=== PATIENT | female | born 1965 | race Caucasian/White ===

== ENCOUNTER → 2018-10-28 | Outpatient (REF) | payer OTHER | LOC: M SFHCLERA 11:01 | PROVIDERS: ATTEND Nurse Practitioner Family | DX: J02.9 Acute pharyngitis, unspecified (principal) ==

== ENCOUNTER → 2019-02-04 | Outpatient (CLI) | payer OTHER ==
[~2019-02-04] MED LIST: D3 S20002 PO; MELO15TA28 PO; PRIL20TA2 PO
--- NOTE | 2019-02-04 10:56 | REP ---
MRCP: MRCP is accomplished utilizing multiple heavily T2-weighted sequences in the axial and coronal planes, with MIP reconstruction images. The gallbladder is mildly distended and contains a 2.5 mm calculus. There is no gallbladder wall edema or pericholecystic fluid. There is not significant intrahepatic biliary dilatation. The common bile duct is mildly dilated up to 9 mm. There is no evidence of choledocholithiasis. There is no definite mass in the head of the pancreas. The pancreatic duct is normal in caliber. The visualized liver, spleen, adrenals, pancreas and kidneys are unremarkable. I see no evidence of adenopathy or free fluid in the visualized abdomen. There is a moderate hiatal hernia. IMPRESSION: Gallstone in the gallbladder measures 2.5 cm in diameter without gallbladder wall edema. There is mild dilatation of the common bile duct at 9 mm maximally. No evidence of choledocholithiasis and no definite pancreatic head mass. However, more complete evaluation of the pancreatic parenchyma is recommended with either MRI or CT with IV contrast. Electronically Signed by Korey Mantilla MD 02/06/2019 07:43 A
== END ==
LOC: M RAD 08:59
PROVIDERS: ATTEND Surgery
DX: K80.20 Calculus of gallbladder without cholecystitis without obstruction (principal)

== ENCOUNTER → 2019-02-14 | Outpatient (CLI) | payer OTHER ==
--- NOTE | 2019-02-16 15:57 | ECGEPIP ---
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 ARTIFACT NOTED ON THE BASELINE Electronically Signed on 02-16-2019 15:57:14 EDT by Bam Gupta
== END ==
LOC: M EKG 12:51
PROVIDERS: ATTEND Surgery
DX: Z01.818 Encounter for other preprocedural examination (principal); K21.9 Gastro-esophageal reflux disease without esophagitis; L93.0 Discoid lupus erythematosus

== ENCOUNTER 2019-02-19 09:59 | Day surgery (SDC) | payer OTHER ==
[~2019-02-19] VITALS: Ht 154.9 cm; Wt 97.1 kg
[~2019-02-19 09:59] MED LIST changes: +LIDOCAINE 2% INJ 100 MG/5 ML SDV (FOR ANES.) As Ordered ONE; +LR 1,000 ML IV ONE; +ONDANSETRON 4MG/2ML VIAL (J2405) As Ordered ONE; +PROPOFOL 200 MG/20 ML VIAL As Ordered ONE; +ROCURONIUM BROMIDE 50 MG/5 ML VIAL As Ordered ONE; +dexameTHASONE 4 MG/ML 1ML VIAL (J1100) As Ordered ONE
[2019-02-19] MEDS ORDERED: MIDAZOLAM INJ 2 MG/2 ML VIAL (J2250) As Ordered ONE (10:02)
[2019-02-19] MEDS ORDERED: fentaNYL 250 MCG/5 ML INJECTION (J3010) As Ordered ONE (10:02)
[2019-02-19] MEDS ORDERED: GLUCAGON FOR INJ 1 MG VIAL (J1610) As Ordered ONE (10:03)
[2019-02-19] MEDS ORDERED: BUPIVACAINE/EPIN 0.25% 30 ML VIAL As Ordered ONE (10:03)
[2019-02-19] MEDS: ceFAZolin SOD 1 GM in D5W MINI-BAG PLUS 50 ML IV SCH (10:52)
[2019-02-19] MEDS ORDERED: ACETAMINOPHEN 1000MG 100ML IV BTL (OFIRMEV) (J0131 PER 10MG) As Ordered ONE (10:56)
[2019-02-19] MEDS ORDERED: KETOROLAC 60 MG/2 ML VIAL (J1885) As Ordered ONE (11:27)
[2019-02-19] MEDS ORDERED: SUGAMMADEX SODIUM 500 MG/5 ML VIAL (BRIDION) As Ordered ONE (11:27)
--- NOTE | 2019-02-19 12:14 | RO ---
DATE OF PROCEDURE: 02/19/2019 PREOPERATIVE DIAGNOSIS: Symptomatic gallstones. POSTOPERATIVE DIAGNOSIS: Symptomatic gallstones. PROCEDURE: Laparoscopic cholecystectomy. SURGEON: Dr. 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 ESTIMATED BLOOD LOSS: Minimal. FLUIDS: Crystalloid. DESCRIPTION OF PROCEDURE: The patient was brought to the operating room and was given general anesthesia. After adequate anesthesia and preoperative antibiotics were given, the patient was prepped and draped in the usual sterile fashion. Next, a supraumbilical incision was made with skin knife. Blunt dissection was carried down to fascia. Fascia was entered with a Veress needle, insufflated to 15 mm of pressure and a 10 mm trocar was placed. Under direct visualization, an epigastric and two lateral trocars were placed, and the gallbladder was grasped, retracted superiorly. Numerous adhesions of the gallbladder to the duodenum were taken down with hook cautery. The peritoneum overlying the neck of the gallbladder was taken down with hook cautery as well. The patient had an anteriorly placed cystic artery with the cystic duct node along this. It was on the gallbladder itself. It was transected and then the neck of the gallbladder was further mobilized quite nicely so that the dissection went all the way up to the cystic plate and the neck of gallbladder seemed to taper nicely into the cystic duct itself. Cystic duct was clipped proximally and distally and transected, and the gallbladder was removed from the gallbladder bed, placed in an EndoCatch bag and brought out through the umbilicus. 0 Vicryl was used to close the fascia at the umbilicus and all incisions were closed with 4-0 Vicryl. Dermabond was placed over the incisions, as well as gauze and OpSite. The patient was awakened, extubated, and brought to recovery room awake, alert, hemodynamically stable. Sponge and needle counts correct times two.
[2019-02-19] MEDS ORDERED: HYDROMORPHONE HCL 0.5 MG/ 0.5 ML SYRINGE (J1170 PER 1) IV PRN (12:30)
[2019-02-19] MEDS ORDERED: NORCO, ANEXSIA 5/325MG TABLET (HYDROcodone/ACETAMINOPHEN) PO PRN (12:30)
[2019-02-19] MEDS ORDERED: fentaNYL 100 MCG/2 ML INJECTION (J3010) IV PRN (12:30)
[2019-02-19] MEDS ORDERED: LR 1,000 ML IV SCH (12:30)
[2019-02-19] MEDS ORDERED: ONDANSETRON 4MG/2ML VIAL (J2405) IV PRN (12:30)
[2019-02-19] MEDS ORDERED: PERCOCET 5MG/325MG TAB PO PRN (12:30)
[2019-02-19] MEDS ORDERED: PERCOCET 5MG/325MG TAB As Ordered ONE (12:31)
[2019-02-19 14:40] VITALS: BP 137/77
[2019-02-19] MEDS ORDERED: KETOROLAC 30 MG/ML VIAL (J1885) IV SCH (18:00)
== END 2019-02-19 14:50 | disposition home or self-care (01) ==
LOC: M SDC 09:59
PROVIDERS: ATTEND Surgery
DX: K80.10 Calculus of gallbladder with chronic cholecystitis without obstruction (principal); K21.9 Gastro-esophageal reflux disease without esophagitis; M32.9 Systemic lupus erythematosus, unspecified; Z79.899 Other long term (current) drug therapy; Z88.8 Allergy status to other drugs, medicaments and biological substances; Z88.1 Allergy status to other antibiotic agents
CPT/HCPCS: 47562; 88304; J0131; J0690; J1100; J1885; J2250; J2405; J3010

== ENCOUNTER → 2022-08-30 | Outpatient (CLI) | payer OTHER ==
[~2022-08-30] MED LIST changes: -LIDOCAINE 2% INJ 100 MG/5 ML SDV (FOR ANES.) As Ordered ONE; -LR 1,000 ML IV ONE; -ONDANSETRON 4MG/2ML VIAL (J2405) As Ordered ONE; -PROPOFOL 200 MG/20 ML VIAL As Ordered ONE; -ROCURONIUM BROMIDE 50 MG/5 ML VIAL As Ordered ONE; -dexameTHASONE 4 MG/ML 1ML VIAL (J1100) As Ordered ONE
[2022-08-30 19:46] LABS: CHOLESTEROL RISK RATIO 2.8 (<5); HDL CHOLESTEROL 85.7 MG/DL (>40); LDL CHOLESTEROL 136.5 MG/DL (<100)
== END ==
LOC: M WUC 16:02
PROVIDERS: ATTEND Physician Assistant
DX: E78.2 Mixed hyperlipidemia (principal)

== ENCOUNTER → 2022-08-30 | Outpatient (CLI) | payer OTHER ==
[2022-08-30 19:20] LABS: APPEARANCE, URINE CLEAR (CLEAR); BACTERIA, URINE AUTO NEGATIVE (NEGATIVE); BILIRUBIN, URINE AUTO NEGATIVE (NEGATIVE); BLOOD, URINE BLOOD NEGATIVE (NEGATIVE); COLOR, URINE YELLOW (YELLOW); GLUCOSE, URINE (UA) AUTO NEGATIVE (NEGATIVE); HEMATOCRIT 40.7 % (36.0-47.0); HEMOGLOBIN 13.3 g/dl (12.0-15.5); KETONE, URINE AUTO TRACE mg/dL (NEGATIVE); LEUKOCYTE ESTERASE, URINE AUTO NEGATIVE (NEGATIVE); MEAN CORPUSCULAR HEMOGLOBIN 29.1 pg (27.0-33.0); MEAN CORPUSCULAR HGB CONC 32.7 g/dl (32.0-36.5); MEAN CORPUSCULAR VOLUME 89.1 fl (80.0-96.0); MUCUS, URINE SMALL (NEGATIVE); NITRITE, URINE AUTO NEGATIVE (NEGATIVE); PLATELET COUNT, AUTOMATED 277 10^3/uL (150-450); PROTEIN, URINE AUTO NEGATIVE (NEGATIVE); RBC, URINE AUTO 1 /HPF (0-3); RED BLOOD COUNT 4.57 10^6/uL (4.00-5.40); SPECIFIC GRAVITY URINE AUTO 1.026 (1.002-1.035); SQUAMOUS EPITHELIAL CELL UR AU 1 /HPF (0-6); UROBILINOGEN, URINE AUTO 0.2 mg/dL (0.0-2.0); WBC, URINE AUTO 3 /HPF (0-3); WHITE BLOOD COUNT 8.4 10^3/uL (4.0-10.0)
[2022-08-30 19:44] LABS: CREATININE,RANDOM URINE 109.7 MG/DL
[2022-08-30 19:45] LABS: ALBUMIN 3.8 G/DL (3.2-5.2); ALKALINE PHOSPHATASE 44 U/L (46-116); ALT/SGPT 24 U/L (7.0-40); AST/SGOT 23 U/L (<34); BILIRUBIN,TOTAL 0.5 MG/DL (0.3-1.2); BLOOD UREA NITROGEN 16 MG/DL (9-23); CALCIUM LEVEL 8.7 MG/DL (8.5-10.1); CARBON DIOXIDE LEVEL 32 MMOL/L (20-31); CHLORIDE LEVEL 101 MMOL/L (98-107); CREATININE FOR GFR 0.71 MG/DL (0.55-1.30); GLOMERULAR FILTRATION RATE > 60.0 (>51); GLUCOSE, FASTING 78 MG/DL (60-100); POTASSIUM SERUM 3.8 MMOL/L (3.5-5.1); SODIUM LEVEL 135 MMOL/L (136-145); TOTAL PROTEIN 6.7 G/DL (5.7-8.2)
== END ==
LOC: M WUC 16:06
PROVIDERS: ATTEND Internal Medicine Rheumatology
DX: M32.9 Systemic lupus erythematosus, unspecified (principal)

== ENCOUNTER → 2022-11-18 | Outpatient (CLI) | payer OTHER | LOC: M WUC 13:12 | PROVIDERS: ATTEND Internal Medicine Rheumatology | DX: Z79.899 Other long term (current) drug therapy (principal) ==

== ENCOUNTER → 2023-05-12 | Outpatient (CLI) | payer OTHER ==
[2023-05-12 15:37] LABS: HEMATOCRIT 45.9 % (36.0-47.0); HEMOGLOBIN 14.8 g/dl (12.0-15.5); MEAN CORPUSCULAR HEMOGLOBIN 28.7 pg (27.0-33.0); MEAN CORPUSCULAR HGB CONC 32.2 g/dl (32.0-36.5); PLATELET COUNT, AUTOMATED 295 10^3/uL (150-450); RED BLOOD COUNT 5.16 10^6/uL (4.00-5.40); WHITE BLOOD COUNT 8.3 10^3/uL (4.0-10.0)
[2023-05-12 16:02] LABS: ALBUMIN 3.8 G/DL (3.2-5.2); ALKALINE PHOSPHATASE 53 U/L (46-116); ALT/SGPT 16 U/L (7.0-40); AST/SGOT 12 U/L (<34); BILIRUBIN,TOTAL 0.6 MG/DL (0.3-1.2); BLOOD UREA NITROGEN 11 MG/DL (9-23); CALCIUM LEVEL 9.1 MG/DL (8.5-10.1); CARBON DIOXIDE LEVEL 27 MMOL/L (20-31); CHLORIDE LEVEL 102 MMOL/L (98-107); CHOLESTEROL LEVEL 271 MG/DL (<200); CHOLESTEROL RISK RATIO 2.59 (<5); CREATININE FOR GFR 0.71 MG/DL (0.55-1.30); GLOMERULAR FILTRATION RATE > 60.0 (>51); GLUCOSE, FASTING 87 MG/DL (60-100); HDL CHOLESTEROL 104.6 MG/DL (>40); LDL CHOLESTEROL 150.2 MG/DL (<100); NON-HDL-C 166.4 MG/DL; POTASSIUM SERUM 4.6 MMOL/L (3.5-5.1); SODIUM LEVEL 137 MMOL/L (136-145); TOTAL PROTEIN 7.1 G/DL (5.7-8.2); TRIGLYCERIDES LEVEL 81 MG/DL (<150)
== END ==
LOC: M WUC 10:56
PROVIDERS: ATTEND Physician Assistant
DX: E78.2 Mixed hyperlipidemia (principal)

== ENCOUNTER → 2023-09-21 | Outpatient (CLI) | payer OTHER ==
[2023-09-21 09:48] LABS: HEMOGLOBIN 13.6 g/dl (12.0-15.5); MEAN CORPUSCULAR HEMOGLOBIN 29.2 pg (27.0-33.0); MEAN CORPUSCULAR HGB CONC 33.2 g/dl (32.0-36.5); MEAN CORPUSCULAR VOLUME 88.2 fl (80.0-96.0); PLATELET COUNT, AUTOMATED 335 10^3/uL (150-450); RED BLOOD COUNT 4.65 10^6/uL (4.00-5.40)
[2023-09-21 10:22] LABS: TOTAL IRON BINDING CAPACITY 286 UG/DL (250-425)
[2023-09-21 10:24] LABS: THYROID STIMULATING HORMONE 1.851 uIU/ML (0.55-4.78)
[2023-09-21 10:25] LABS: ALBUMIN 3.7 G/DL (3.2-5.2); ALKALINE PHOSPHATASE 114 U/L (46-116); ALT/SGPT 29 U/L (7.0-40); AST/SGOT 13 U/L (<34); BILIRUBIN,TOTAL 0.5 MG/DL (0.3-1.2); BLOOD UREA NITROGEN 14 MG/DL (9-23); CALCIUM LEVEL 9.1 MG/DL (8.5-10.1); CARBON DIOXIDE LEVEL 29 MMOL/L (20-31); CHLORIDE LEVEL 102 MMOL/L (98-107); CHOLESTEROL LEVEL 195 MG/DL (<200); CHOLESTEROL RISK RATIO 2.79 (<5); CREATININE FOR GFR 0.62 MG/DL (0.55-1.30); GLOMERULAR FILTRATION RATE > 60.0 (>51); GLUCOSE, FASTING 77 MG/DL (60-100); HDL CHOLESTEROL 69.8 MG/DL (>40); IRON (FE) 64 UG/DL (50-170); LDL CHOLESTEROL 108.4 MG/DL (<100); NON-HDL-C 125.2 MG/DL; PERCENT SATURATION 22.4 % (13.2-45.0); POTASSIUM SERUM 4.6 MMOL/L (3.5-5.1); SODIUM LEVEL 136 MMOL/L (136-145); TOTAL PROTEIN 6.6 G/DL (5.7-8.2); TRIGLYCERIDES LEVEL 84 MG/DL (<150)
[2023-09-22 06:39] LABS: WHITE BLOOD COUNT 10.6 10^3/uL (4.0-10.0)
== END ==
LOC: M WUC 08:03
PROVIDERS: ATTEND Physician Assistant
DX: E78.2 Mixed hyperlipidemia (principal); R53.83 Other fatigue; E61.1 Iron deficiency

== ENCOUNTER → 2024-04-15 | Outpatient (CLI) | payer OTHER ==
[2024-04-15 12:57] LABS: HEMATOCRIT 42.4 % (36.0-47.0); HEMOGLOBIN 14.1 g/dl (12.0-15.5); MEAN CORPUSCULAR HEMOGLOBIN 29.6 pg (27.0-33.0); MEAN CORPUSCULAR HGB CONC 33.3 g/dl (32.0-36.5); MEAN CORPUSCULAR VOLUME 89.1 fl (80.0-96.0); PLATELET COUNT, AUTOMATED 342 10^3/uL (150-450); RED BLOOD COUNT 4.76 10^6/uL (4.00-5.40); WHITE BLOOD COUNT 8.2 10^3/uL (4.0-10.0)
[2024-04-15 13:32] LABS: ALBUMIN 3.7 G/DL (3.2-5.2); ALKALINE PHOSPHATASE 60 U/L (46-116); ALT/SGPT 15 U/L (7.0-40); AST/SGOT 11 U/L (<34); BILIRUBIN,TOTAL 0.6 MG/DL (0.3-1.2); BLOOD UREA NITROGEN 12 MG/DL (9-23); CALCIUM LEVEL 10.6 MG/DL (8.5-10.1); CARBON DIOXIDE LEVEL 29 MMOL/L (20-31); CHLORIDE LEVEL 102 MMOL/L (98-107); CHOLESTEROL LEVEL 228 MG/DL (<200); CHOLESTEROL RISK RATIO 3.59 (<5); GLOMERULAR FILTRATION RATE > 60.0 (>51); GLUCOSE, FASTING 74 MG/DL (60-100); HDL CHOLESTEROL 63.5 MG/DL (>40); LDL CHOLESTEROL 149.1 MG/DL (<100); NON-HDL-C 164.5 MG/DL; POTASSIUM SERUM 4.1 MMOL/L (3.5-5.1); SODIUM LEVEL 137 MMOL/L (136-145); TOTAL PROTEIN 6.7 G/DL (5.7-8.2); TRIGLYCERIDES LEVEL 77 MG/DL (<150)
[2024-04-15 13:33] LABS: THYROID STIMULATING HORMONE 1.766 uIU/ML (0.55-4.78); TOTAL 25(OH) VITAMIN D 57.3 NG/ML (20.0-100.0)
== END ==
LOC: M WUC 10:09
PROVIDERS: ATTEND Physician Assistant
DX: M32.9 Systemic lupus erythematosus, unspecified (principal); E78.2 Mixed hyperlipidemia; F33.1 Major depressive disorder, recurrent, moderate; E55.9 Vitamin D deficiency, unspecified

== ENCOUNTER → 2025-01-14 | Outpatient (CLI) | payer OTHER ==
[2025-01-14 13:05] LABS: PLATELET COUNT, AUTOMATED 274 10^3/uL (150-450)
[2025-01-14 13:34] LABS: ALT/SGPT 31 U/L (7.0-40); AST/SGOT 22 U/L (<34); CALCIUM LEVEL 8.7 MG/DL (8.5-10.1); CARBON DIOXIDE LEVEL 30 MMOL/L (20-31); CHLORIDE LEVEL 101 MMOL/L (98-107); CHOLESTEROL LEVEL 211 MG/DL (<200); CHOLESTEROL RISK RATIO 2.63 (<5); CREATININE FOR GFR 0.71 MG/DL (0.55-1.30); GLOMERULAR FILTRATION RATE > 90.0 (>51); IRON (FE) 61 UG/DL (50-170); LDL CHOLESTEROL 118.5 MG/DL (<100); NON-HDL-C 130.9 MG/DL; POTASSIUM SERUM 4.3 MMOL/L (3.5-5.1); SODIUM LEVEL 140 MMOL/L (136-145); TRIGLYCERIDES LEVEL 62 MG/DL (<150)
== END ==
LOC: M WUC 10:23
PROVIDERS: ATTEND Physician Assistant
DX: E78.2 Mixed hyperlipidemia (principal); E61.1 Iron deficiency; E32.9 Disease of thymus, unspecified

== ENCOUNTER 2025-04-17 10:45 | Day surgery (SDC) | payer OTHER ==
[~2025-04-17] VITALS: Ht 154.9 cm; Wt 65.9 kg
[~2025-04-17 10:45] MED LIST changes: +BUPR-766 PO; +DULO20CA27 PO; +TIRZ5VIA SQ; +VITA100093 PO
[2025-04-17] MEDS ORDERED: LIDOCAINE 2% 100 MG/5 ML SDV (FOR ANES.) As Ordered ONE (11:48)
[2025-04-17 11:58] VITALS: TEMP 98
[2025-04-17 12:19] VITALS: BP 120/58; O2SAT 98
== END 2025-04-17 12:25 | disposition home or self-care (01) ==
LOC: M OPP 10:45
PROVIDERS: ATTEND Surgery
DX: Z12.11 Encounter for screening for malignant neoplasm of colon (principal); K64.8 Other hemorrhoids; Z88.1 Allergy status to other antibiotic agents; Z88.8 Allergy status to other drugs, medicaments and biological substances; Z91.048 Other nonmedicinal substance allergy status; Z79.85 Long-term (current) use of injectable non-insulin antidiabetic drugs; Z79.899 Other long term (current) drug therapy

== ENCOUNTER → 2025-05-06 | Outpatient (CLI) | payer OTHER | LOC: M WUC 15:45 | PROVIDERS: ATTEND Internal Medicine | DX: M54.32 Sciatica, left side (principal); M47.817 Spondylosis without myelopathy or radiculopathy, lumbosacral region ==